=== PATIENT | female | born 1945 | race Two or more races ===

== ENCOUNTER 2018-01-11 07:20 | Outpatient (CLI) | payer OTHER ==
[~2018-01-11 07:20] MED LIST: ASA81 MG PO; ATENOLOL50 MG PO; COZAAR50 MG PO; XANAX0.25 MG PO; ZOLOFT50 MG PO
== END 2018-01-11 07:37 | disposition home or self-care (01) ==
LOC: MAMO-SONO 07:20
DX: Z12.31 Encounter for screening mammogram for malignant neoplasm of breast (principal); Z87.898 Personal history of other specified conditions; N60.11 Diffuse cystic mastopathy of right breast

== ENCOUNTER 2020-02-21 09:54 | Outpatient (CLI) | payer OTHER | END 2020-02-21 09:58 | disposition home or self-care (01) | LOC: RAD 09:54 | PROVIDERS: ATTEND Physical Medicine & Rehabilitation | DX: M54.5 Low back pain (principal); M54.16 Radiculopathy, lumbar region; M16.11 Unilateral primary osteoarthritis, right hip ==

== ENCOUNTER 2020-04-15 08:20 | Outpatient (CLI) | payer OTHER | END 2020-04-15 08:40 | disposition home or self-care (01) | LOC: RAD 08:20 | PROVIDERS: ATTEND Physical Medicine & Rehabilitation | DX: M54.5 Low back pain (principal); M54.16 Radiculopathy, lumbar region | CPT/HCPCS: 72148 ==

== ENCOUNTER 2020-05-30 09:52 | Outpatient (CLI) | payer OTHER | END 2020-05-30 09:59 | disposition home or self-care (01) | LOC: RAD 09:52 | PROVIDERS: ATTEND Physical Medicine & Rehabilitation | DX: M25.111 Fistula, right shoulder (principal) ==

== ENCOUNTER 2020-07-07 07:49 | Outpatient (CLI) | payer OTHER | END 2020-07-07 07:51 | disposition home or self-care (01) | LOC: SONOGRAMA 07:49 | PROVIDERS: ATTEND Pathology Anatomic Pathology & Clinical Pathology | DX: R59.0 Localized enlarged lymph nodes (principal) ==

== ENCOUNTER 2022-02-03 07:33 | Outpatient (CLI) | payer OTHER | END 2022-02-03 07:34 | disposition home or self-care (01) | LOC: MAMO-SONO 07:33 | PROVIDERS: ATTEND Obstetrics & Gynecology | DX: N60.11 Diffuse cystic mastopathy of right breast (principal) ==

== ENCOUNTER 2022-03-02 13:55 | Outpatient (CLI) | payer OTHER | END 2022-03-02 14:02 | disposition home or self-care (01) | LOC: RAD 13:55 | PROVIDERS: ATTEND Physical Medicine & Rehabilitation | DX: M54.2 Cervicalgia (principal) ==

== ENCOUNTER 2022-12-03 08:52 | Outpatient (CLI) | payer OTHER | END 2022-12-03 08:57 | disposition home or self-care (01) | LOC: RAD 08:52 | PROVIDERS: ATTEND Ophthalmology | DX: H25.011 Cortical age-related cataract, right eye (principal); Z98.41 Cataract extraction status, right eye ==

== ENCOUNTER 2023-06-13 10:38 | Outpatient (CLI) | payer OTHER | END 2023-06-13 10:47 | disposition home or self-care (01) | LOC: MAMO-SONO 10:38 | PROVIDERS: ATTEND Obstetrics & Gynecology | DX: N60.11 Diffuse cystic mastopathy of right breast (principal); Z12.31 Encounter for screening mammogram for malignant neoplasm of breast ==

== ENCOUNTER 2023-06-13 12:57 | Outpatient (CLI) | payer OTHER | END 2023-06-13 13:00 | disposition home or self-care (01) | LOC: NUCLEAR 12:57 | PROVIDERS: ATTEND Obstetrics & Gynecology | DX: M81.0 Age-related osteoporosis without current pathological fracture (principal) ==

== ENCOUNTER 2025-01-25 09:31 | Outpatient (CLI) | payer OTHER | END 2025-01-25 09:34 | disposition home or self-care (01) | LOC: MAMO-SONO 09:31 | PROVIDERS: ATTEND Obstetrics & Gynecology | DX: N60.11 Diffuse cystic mastopathy of right breast (principal); Z12.31 Encounter for screening mammogram for malignant neoplasm of breast ==

== ENCOUNTER 2025-01-27 12:11 | Emergency (ER) | payer OTHER ==
[~2025-01-27] VITALS: Ht 162.6 cm; Wt 46.3 kg
[2025-01-27] MEDS ORDERED: 0.9 % SODIUM CHLORIDE 1,000 ML IV SCH (13:30)
[2025-01-27 15:20] LABS: BASO % 0.2 % (0.1-1.2); HEMATOCRIT 39.1 % (34.1-44.9); HEMOGLOBIN 13.2 g/dL (11.2-15.7); LYMPH % 5.8 % (19.3-53.1); MEAN CORPUSCULAR HEMOGLOBIN 29.8 pg (25.6-32.2); MONO # 0.55 (0.24-0.82); MONO % 4.6 % (4.7-12.5); NEUT # 10.69 (1.56-6.13); NEUT % 89.1 % (34.0-71.1); PLATELET COUNT 287 K/uL (163-369); RED BLOOD COUNT 4.43 M/uL (3.93-5.22); RED CELL DISTRIBUTION WIDTH 12.6 % (11.6-14.4)
[2025-01-27 15:49] LABS: CALCIUM 9.7 mg/dL (8.5-10.1); CREATININE SERUM 0.92 mg/dL (0.55-1.02); GFR 59.19; POTASSIUM 4.82 mEq/L (3.5-5.1)
[2025-01-27] MEDS ORDERED: CIPROFLOXACIN IN 5 % DEXTROSE 400 MG/200 ML PIGGYBAG IV ONE ×2 (17:00→17:01)
[2025-01-28] MEDS ORDERED: FAMOTIDINE/PF 20 MG/2 ML VIAL ONE (08:53)
[2025-01-28] MEDS ORDERED: CIPROFLOXACIN IN 5 % DEXTROSE 400 MG/200 ML PIGGYBAG IV ONE (08:53)
[2025-01-28] MEDS ORDERED: CIPROFLOXACIN IN 5 % DEXTROSE 400 MG/200 ML PIGGYBAG IV SCH (09:00)
[2025-01-28] MEDS ORDERED: FAMOtidine 10 MG/ML (4ML VIAL) IV SCH (09:00)
[2025-01-28] MEDS ORDERED: PEPCID AC20 MG PO (10:28)
[2025-01-28] MEDS ORDERED: BACTRIM DS TAB1 EACH PO (10:28)
[2025-01-28] MEDS ORDERED: PROBIOTIC1 EAC2 PO (10:28)
== END 2025-01-28 14:40 | disposition home or self-care (01) ==
LOC: ER 12:11
PROVIDERS: Emergency Medicine
DX: R10.9 Unspecified abdominal pain (principal); Z88.8 Allergy status to other drugs, medicaments and biological substances; I10 Essential (primary) hypertension; G30.8 Other Alzheimer's disease; F02.80 Dementia in other diseases classified elsewhere, unspecified severity, without behavioral disturbance, psychotic disturbance, mood disturbance, and anxiety; D72.829 Elevated white blood cell count, unspecified; D25.9 Leiomyoma of uterus, unspecified
CPT/HCPCS: 36415; 70450; 71045; 72125; 74177; 76856; 96365; 99284; J0696; J3490; J7030; Q9965